=== PATIENT | female | born 1950 | race African-American/Black ===

== ENCOUNTER 2016-05-11 12:03 | Observation (INO) | payer MEDICARE, MEDICAID ==
[~2016-05-11] VITALS: Ht 160 cm; Wt 86.4 kg
[2016-05-11 13:03] LABS: BASOPHILS % 1.2 % (0.0-2.0); EOSINOPHILS % 0.8 % (0.0-5.0); HEMATOCRIT. 35.5 % (36.0-48.0); HEMOGLOBIN. 11.7 g/dL (12.0-16.0); LYMPHOCYTES % 10.5 % (20.0-50.0); MEAN CORPUSCULAR HEMOGLOBIN 31.5 pg (28.0-32.0); MEAN CORPUSCULAR VOLUME 95.5 fL (81.0-99.0); MONOCYTES % 6.2 % (2.0-8.0); NEUTROPHILS % 81.3 % (40.0-76.0); PLATELET 327 x1000/uL (130-400); RED BLOOD CELL COUNT 3.71 mill/uL (4.2-5.4); RED CELL DISTRIBUTION WIDTH 15.1 % (11.6-14.6); WHITE BLOOD COUNT 6.8 x1000/uL (4.5-11.0)
[2016-05-11 13:06] LABS: BG BASE EXCESS -4.3 mmol/L (-2.0-2.0); BG CARBOXYHEMOGLOBIN 0.8 % (0.5-1.5); BG DEOXYHEMOGLOBIN 5.7 % (0.0-5.0); BG FRACTION INSPIRED OXYGEN 21; BG HCO3 ACT 18.7 mmol/L (22.0-26.0); BG METHEMOGLOBIN 0.3 % (0.0-1.5); BG OXYGEN SATURATION 94.2 % (92.0-98.5); BG OXYHEMOGLOBIN 93.2 % (94.0-97.0); BG PCO2 28.4 mmHg (35.0-45.0); BG PH 7.437 (7.350-7.450); BG PO2 69.8 mmHg (75.0-100.0); BG SAMPLE SITE LEFT BRACHIAL; BG VENT MODE ROOM AIR
[2016-05-11 13:09] LABS: *AMPHETAMINES SCREEN URINE NEGATIVE (NEGATIVE); *BARBITURATES SCREEN URINE NEGATIVE (NEGATIVE); *BENZODIAZEPINES SCREEN URINE NEGATIVE (NEGATIVE); *COCAINE SCREEN URINE NEGATIVE (NEGATIVE); CANNABINOID URINE SCREEN NEGATIVE (NEGATIVE); ECSTASY MDMA SCREEN URINE NEGATIVE (NEGATIVE); METHADONE URINE SCREEN NEGATIVE (NEGATIVE); OPIATES URINE SCREEN NEGATIVE (NEGATIVE); PHENCYCLIDINE URINE SCREEN NEGATIVE (NEGATIVE)
[2016-05-11 13:14] LABS: D-DIMER 1.82 mg/L FEU (<0.50); INR 1.1; PROTHROMBIN TIME 11.3 sec
[2016-05-11 13:15] LABS: CALCIUM 8.3 mg/dL (8.5-10.1)
[2016-05-11 13:20] LABS: TROPONIN I 0.06 ng/mL (0.00-0.04)
[2016-05-11] MEDS ORDERED: FUROSEMIDE 20MG/2ML VIAL IVP ONE (14:45)
[2016-05-11] MEDS ORDERED: IPRATROPIUM/ALBUTEROL 0.5-3(2.5)MG/3ML NEB INH PRN (16:45)
[2016-05-11] MEDS ORDERED: ONDANSETRON HCL 4MG/2ML VIAL IV PRN (16:45)
[2016-05-11] MEDS ORDERED: HYDROCODONE/ACETAMINOPHEN 5/325MG TABLET PO PRN (16:45)
[2016-05-11] MEDS ORDERED: ACETAMINOPHEN 325MG TABLET PO PRN (16:45)
[2016-05-11 17:31] VITALS: BP 192/101
[2016-05-11 17:45] VITALS: BP 191/101
[2016-05-11] MEDS: FUROSEMIDE 40MG/4ML VIAL IV SCH (18:00)
[2016-05-11] MEDS: LISINOPRIL 20MG TABLET PO SCH (18:01)
[2016-05-11] MEDS: CLONIDINE 0.1MG TABLET PO PRN (18:01)
[2016-05-11] MEDS ORDERED: ISOS60TA4 PO (18:15)
[2016-05-11] MEDS ORDERED: CLON0.1T PO (18:15)
[2016-05-11] MEDS ORDERED: DOXA4TAB3 PO (18:15)
[2016-05-11] MEDS ORDERED: HYDR100T26 PO (18:15)
[2016-05-11] MEDS ORDERED: LISI40TA4 PO (18:15)
[2016-05-11] MEDS ORDERED: ATOR40TA70 PO (18:15)
[2016-05-11] MEDS ORDERED: FURO40TA5 PO (18:15)
[2016-05-11] MEDS ORDERED: CARV25TA47 PO (18:15)
[2016-05-11] MEDS ORDERED: INSU3INS6 SUBCUT (18:15)
[2016-05-11 20:00] VITALS: BP 141/78
[2016-05-11] MEDS ORDERED: DEXTROSE 50% WATER 50ML SYRINGE IV PRN (20:30)
[2016-05-11 20:50] LABS: TROPONIN I 0.06 ng/mL (0.00-0.04)
[2016-05-11] MEDS: BLOOD SUGAR DIAGNOSTIC STRIP TEST SCH (21:00)
[2016-05-11] MEDS: ENOXAPARIN 30MG/0.3ML SYR SUBCUT SCH (21:00)
[2016-05-11] MEDS: INSULIN LISPRO 100 UNITS/ML SUBCUT SCH (21:03)
[2016-05-12] VITALS: BP 144/95
[2016-05-12 04:00] VITALS: BP 133/85
[2016-05-12 06:37] LABS: BASOPHILS % 0.9 % (0.0-2.0); EOSINOPHILS % 3.2 % (0.0-5.0); HEMATOCRIT. 34.8 % (36.0-48.0); HEMOGLOBIN. 11.5 g/dL (12.0-16.0); LYMPHOCYTES % 19.4 % (20.0-50.0); MEAN CORPUSCULAR HEMOGLOBIN 31.2 pg (28.0-32.0); MEAN CORPUSCULAR HGB CONC 33.2 g/dL (31.0-37.0); MEAN CORPUSCULAR VOLUME 94.1 fL (81.0-99.0); MEAN PLATELET VOLUME 8.6 fl (7.4-10.4); MONOCYTES % 7.6 % (2.0-8.0); NEUTROPHILS % 68.9 % (40.0-76.0); PLATELET 319 x1000/uL (130-400); WHITE BLOOD COUNT 5.8 x1000/uL (4.5-11.0)
[2016-05-12 07:25] LABS: CHLORIDE 107 mEq/L (98-107); INDEX HEMOLYSI 1 (1-3); INDEX ICTERIC 1 (1-4); INDEX LIPEMIC 1 (1-3)
[2016-05-12] MEDS: BLOOD SUGAR DIAGNOSTIC STRIP TEST SCH ×2 (07:32→12:40)
[2016-05-12 07:37] LABS: ALANINE AMINOTRANSFERASE 48 IU/L (13-61); ANION GAP 14; CALCIUM 8.1 mg/dL (8.5-10.1); CARBON DIOXIDE 26 mEq/L (21-32); CREATINE KINASE 281 IU/L (26-192); HDL CHOLESTEROL 55 mg/dL (40-59); LDL CHOLESTEROL 85 mg/dL (5-100); T4 FREE 1.42 ng/dL (0.76-1.46); TRIGLYCERIDE 59 mg/dL (0-150); TROPONIN I 0.06 ng/mL (0.00-0.04); UREA NITROGEN BLOOD 24 mg/dL (7-21); eGFR 34 mL/min (>60)
[2016-05-12] MEDS: INSULIN LISPRO 100 UNITS/ML SUBCUT SCH ×2 (07:45→12:45)
[2016-05-12] MEDS: CLONIDINE 0.1MG TABLET PO PRN (07:47)
[2016-05-12 08:00] VITALS: BP 176/114
[2016-05-12 09:00] VITALS: BP 154/91
[2016-05-12] MEDS ORDERED: ASPIRIN 81MG EC TABLET PO SCH (09:00)
[2016-05-12] MEDS: ENOXAPARIN 30MG/0.3ML SYR SUBCUT SCH (09:02)
[2016-05-12] MEDS: LISINOPRIL 20MG TABLET PO SCH (09:02)
[2016-05-12] MEDS: FUROSEMIDE 40MG/4ML VIAL IV SCH (09:02)
[2016-05-12 12:00] VITALS: BP 152/90
[2016-05-12] MEDS ORDERED: POTASSIUM CHLORIDE 20MEQ TABLET SR PO SCH (13:00)
[2016-05-12 13:15] VITALS: BP 152/90
== END 2016-05-12 13:30 | disposition home or self-care (01) ==
LOC: ER 14:13 → INTOOBSV 15:48 → 7WST 15:48
PROVIDERS: ADMIT Internal Medicine; ATTEND Internal Medicine
DX: I50.23 Acute on chronic systolic (congestive) heart failure (principal); I11.0 Hypertensive heart disease with heart failure; I16.0 Hypertensive urgency; E78.00 Pure hypercholesterolemia, unspecified; I42.9 Cardiomyopathy, unspecified; E11.9 Type 2 diabetes mellitus without complications
CPT/HCPCS: 36415; 36600; 71010; 78582; 80048; 80053; 80061; 80305; 82375; 82550; 82805; 82962; 83880; 84439; 84443; 84484; 85025; 85379; 85610; 93005; 93970; 96372; 96374; 96376; 99285; A9540; A9558; G0378; J1650; J1815; J1940

== ENCOUNTER 2017-11-25 15:30 | Emergency (ER) | payer MEDICARE, MEDICAID ==
[~2017-11-25] VITALS: Ht 160 cm; Wt 90.0 kg
[~2017-11-25 15:30] MED LIST: ATOR40TA70 PO; CARV25TA47 PO; CLON0.1T PO; DOXA4TAB3 PO; FURO40TA5 PO; HYDR100T26 PO; INSU3INS6 SUBCUT; ISOS60TA4 PO
[2017-11-25] MEDS ORDERED: CLONIDINE 0.2MG TABLET PO ONE (16:15)
[2017-11-25 18:00] VITALS: BP 176/87
== END 2017-11-25 22:00 | disposition home or self-care (01) ==
LOC: ER 19:24
DX: E11.42 Type 2 diabetes mellitus with diabetic polyneuropathy (principal); I10 Essential (primary) hypertension; E78.00 Pure hypercholesterolemia, unspecified; Z79.899 Other long term (current) drug therapy; Z89.512 Acquired absence of left leg below knee
CPT/HCPCS: 82962; 99283